=== PATIENT | male | born 1970 | race Two or more races ===

== ENCOUNTER 2020-04-10 12:14 | Day surgery (SDC) | payer SELFPAY ==
[~2020-04-10] VITALS: Ht 180.3 cm; Wt 99.9 kg
[2020-04-10 12:46] VITALS: BP 137/95
[2020-04-10] MEDS ORDERED: LISINOPRIL PO (12:59)
[2020-04-10] MEDS ORDERED: HYDROCHLOROTH12.5 MG PO (12:59)
[2020-04-10] MEDS ORDERED: CHLORHEXIDINE 15 ML UDC MM ONE (13:00)
[2020-04-10] MEDS ORDERED: LACTATED RINGERS 1,000 ML IV SCH (13:00)
[2020-04-10] MEDS ORDERED: CHLORHEXIDINE 15 ML UDC ONE (13:05)
[2020-04-10 13:44] LABS: ALANINE AMINOTRANSFERASE 37 U/L (12-78); ALBUMIN 3.7 g/dL (3.4-5.0); ANION GAP 4 mmol/L (5-15); CALCIUM 8.5 mg/dL (8.5-10.1); CHLORIDE 110 mmol/L (98-107); CREATININE 1.09 mg/dL (0.7-1.3)
[2020-04-10 13:46] LABS: ALKALINE PHOSPHATASE 71 U/L (45-117); BILIRUBIN,TOTAL 0.5 mg/dL (0.2-1.0); TOTAL PROTEIN 6.9 g/dL (6.4-8.2)
[2020-04-10] MEDS ORDERED: MIDAZOLAM 1 MG/ML, 2ML ONE (13:55)
[2020-04-10] MEDS ORDERED: FENTANYL PF 100 MCG/2ML ONE ×3 (13:55→16:17)
[2020-04-10] MEDS ORDERED: BUPIVACAINE/PF 0.5% ONE (14:18)
[2020-04-10] MEDS ORDERED: ONDANSETRON 2MG/ML, 2ML ONE (14:36)
[2020-04-10] MEDS ORDERED: LIDOCAINE-MPF 2% ,5ML ONE (14:36)
[2020-04-10] MEDS ORDERED: PROPOFOL 10 MG/ML, 20ML ONE (14:36)
[2020-04-10] MEDS ORDERED: GLYCOPYRROLATE 0.2MG/1ML, 5ML ONE (14:36)
[2020-04-10] MEDS ORDERED: CEFAZOLIN 1,000 MG ONE (14:36)
[2020-04-10] MEDS ORDERED: ROCURONIUM 10MG/ML,5ML ONE (14:36)
[2020-04-10] MEDS ORDERED: NEOSTIGMINE 1 MG/ML, 10ML ONE (14:36)
[2020-04-10] MEDS ORDERED: hydrALAzine 20 MG/ML, 1ML IV PRN (15:30)
[2020-04-10] MEDS ORDERED: ONDANSETRON 2MG/ML, 2ML IVPush PRN (15:30)
[2020-04-10] MEDS ORDERED: METOCLOPRAMIDE 5 MG/ML, 2ML IVPush PRN (15:30)
[2020-04-10] MEDS ORDERED: OXYcodone 5 MG/5 ML ORAL.SOL UDC PO PRN (15:30)
[2020-04-10] MEDS ORDERED: HYDROmorphone 1 MG/ML, 1ML INJ IVPush PRN (15:30)
[2020-04-10] MEDS ORDERED: ACETAMINOPHEN 325 MG TABLET PO PRN (15:30)
[2020-04-10] MEDS ORDERED: LABETALOL 5MG/ML, 20ML IV PRN (15:30)
[2020-04-10] MEDS ORDERED: DIAZEPAM 5 MG/ML, 2ML IVPush PRN (15:30)
[2020-04-10] MEDS ORDERED: MEPERIDINE/PF 25MG/0.5ML IVPush PRN (15:30)
[2020-04-10] MEDS ORDERED: PROMETHAZINE 25 MG/ML, 1ML IVPush PRN (15:30)
[2020-04-10] MEDS ORDERED: DIPHENHYDRAMINE 50 MG/ML, 1ML IVPush PRN (15:30)
[2020-04-10] MEDS ORDERED: KETOROLAC 30 MG/1 ML IVPush PRN (15:30)
[2020-04-10] MEDS: FENTANYL PF 100 MCG/2ML IV PRN ×2 (16:22→17:15)
[2020-04-10] MEDS ORDERED: KETOROLAC 30 MG/1 ML ONE (17:15)
== END 2020-04-10 18:40 | disposition home or self-care (01) ==
LOC: OUT 12:14
PROVIDERS: ATTEND Urology
DX: N43.3 Hydrocele, unspecified (principal); G47.33 Obstructive sleep apnea (adult) (pediatric); I10 Essential (primary) hypertension; Z88.0 Allergy status to penicillin; Z20.828 Contact with and (suspected) exposure to other viral communicable diseases; Z79.899 Other long term (current) drug therapy; Z72.89 Other problems related to lifestyle; Z87.891 Personal history of nicotine dependence; Z82.49 Family history of ischemic heart disease and other diseases of the circulatory system; Z98.890 Other specified postprocedural states
CPT/HCPCS: 36415; 55040; 80053; 87635; J0690; J1885; J2250; J2405; J2704; J2710; J3010; J7120

== ENCOUNTER 2020-04-10 19:39 | Emergency (ER) | payer SELFPAY ==
[~2020-04-10] VITALS: Ht 180.3 cm; Wt 102.5 kg
[~2020-04-10 19:39] MED LIST: HYDROCHLOROTH12.5 MG PO; LISINOPRIL PO
--- NOTE | 2020-04-10 20:59 | NUR ---
PATIENT RESTING ON STRETCHER, NAD, VSS, CALL CARDENAS WITHIN REACH, WILL CONTINUE TO MONITOR
--- NOTE | 2020-04-10 21:43 | NUR ---
REDRESSED PATIENTS SCROTUM WITH ADAPTIC, BULKY DRESSING AND MATERNITY BRIEFS. PATIENT STATES INCREASED COMFORT WITH SUPPORTIVE DRESSING IN PLACE.
[2020-04-10 22:21] VITALS: BP 140/86
== END 2020-04-10 22:23 | disposition home or self-care (01) ==
LOC: ED 21:53
DX: N43.3 Hydrocele, unspecified (principal)
CPT/HCPCS: 99281